=== PATIENT | female | born 1940 | race Asian ===

== ENCOUNTER 2017-03-06 13:53 | Inpatient (IN) | payer MEDICARE, BC ==
[~2017-03-06] VITALS: Ht 162.6 cm; Wt 63.5 kg
[2017-03-06] MEDS ORDERED: Surgicel 4in x 8in TOPIC ONE (13:57)
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
[2017-03-06 15:00] LABS: EOSINOPHILS % (AUTO) 1.3 % (0.0-3.0); HEMATOCRIT 45.4 % (37.0-47.0); HEMOGLOBIN 15.6 G/DL (12.0-16.0); LYMPHOCYTES % (AUTO) 18.9 % (20.0-45.0); MEAN CORPUSCULAR VOLUME 92 FL (80-99); MONOCYTES % (AUTO) 7.1 % (1.0-10.0); NEUTROPHILS % (AUTO) 71.6 % (45.0-75.0); PLATELET COUNT 159 K/UL (150-450); RED BLOOD COUNT 4.92 M/UL (4.20-5.40); RED CELL DISTRIBUTION WIDTH 11.4 % (11.6-14.8); WHITE BLOOD COUNT 5.6 K/UL (4.8-10.8)
[2017-03-06 15:08] VITALS: BP 134/80
[2017-03-06 15:08] LABS: ANION GAP 11 mmol/L (5-15); BLOOD UREA NITROGEN 15 mg/dL (7-18); CALCIUM 9.4 MG/DL (8.5-10.1); CARBON DIOXIDE 27 MMOL/L (21-32); CHLORIDE 104 MMOL/L (98-107); CREATININE 0.9 MG/DL (0.55-1.30); POTASSIUM 3.1 MMOL/L (3.5-5.1); SODIUM 142 MMOL/L (136-145)
--- NOTE | 2017-03-06 15:25 | Diagnostic Imaging Report ---
Indication: Headache Technique: Contiguous 5 mm thick transaxial imaging of the head obtained in a Siemens Sensation [address] scanner. Soft tissue and bone windows generated. Automatic Exposure Control was utilized. Total Dose length Product (DLP): [address] Dose Index Volume (CTDIvol): 70.38, 0.15 mGy Comparison: none Findings: There is mild prominence of the ventricles, basal cisterns, and cerebral sulci consistent with atrophy. Mild, nonspecific, white matter hypoattenuation is noted throughout the brain consistent with chronic small vessel disease. There is no midline shift, edema, acute hemorrhage, mass effect, or abnormal extra-axial fluid collections. Bones and extra osseous soft tissues are unremarkable. Impression: No acute intracranial bleed, mass effect or edema. Mild atrophy of the brain. Nonspecific white matter hypoattenuation probably due to chronic small vessel disease. The CT scanner at [facility] is accredited by the [employer] and the scans are performed using dose optimization techniques as appropriate to a performed exam including Automatic Exposure control.
[2017-03-06] MEDS ORDERED: Ketorolac 30mg Inj IV ONE (16:15)
--- NOTE | 2017-03-06 17:03 | Diagnostic Imaging Report ---
Indication: Chest and abdominal pain Technique: Continuous helical transaxial imaging of the chest, abdomen and pelvis was obtained from the lung bases to the pubic symphysis during intravenous contrast administration. Multiple phases of enhancement obtained. Coronal 2-D reformats were also obtained. Study obtained in a Siemens sensation [address] Automatic Exposure Control was utilized. Total Dose length Product (DLP): [address] Dose Index Volume (CTDIvol): 0.15, 8, 49, 16, 15 mGy Comparison: None Findings: There is posterior basilar atelectasis demonstrated. The heart is enlarged. Aorta is ectatic and mildly calcified. There are multiple hypodensities within the liver. These appear to be cysts. Cholecystectomy noted. Pancreas is unremarkable. There are bilateral renal cysts. Abnormal area of subcutaneous reticulation noted along the left anterior abdominal wall. There is a small milligram hernia containing fat. The appendix is normal. There is no free fluid or free air. The bladder is unremarkable. There is no hydronephrosis. Aorta is mildly calcified. Diverticula noted in the colon. Impression: Abnormal, focal, left anterior abdominal wall subcutaneous reticulation. Cellulitis versus contusion injury. Please correlate clinically. No abscess identified. Umbilical hernia containing fat. Post hysterectomy. Atherosclerotic disease Liver and bilateral renal cysts. Status post cholecystectomy. Posterior basilar atelectasis. Diverticulosis of the colon. The CT scanner at [facility] is accredited by the [employer] and the scans are performed using dose optimization techniques as appropriate to a performed exam including Automatic Exposure control.
[2017-03-06 17:48] VITALS: BP 128/90
[2017-03-06] MEDS ORDERED: LOSARTAN-HCTZ1 EAC2 ORAL (18:06)
[2017-03-06] MEDS ORDERED: LEVOTHYROXINE125 MCG ORAL (18:06)
[2017-03-06] MEDS ORDERED: EVISTA60 MG ORAL (18:06)
[2017-03-06] MEDS ORDERED: SIMVASTATIN20 MG ORAL (18:06)
[2017-03-06] MEDS ORDERED: dilTIAZem HCl 25mg/5ml Inj IV PRN (18:30)
[2017-03-06] MEDS ORDERED: Enalaprilat 2.5mg/2ml Inj IV PRN (18:30)
[2017-03-06] MEDS ORDERED: Nitroglycerin Subl 0.4mg tab SL PRN (18:30)
[2017-03-06] MEDS ORDERED: Ketorolac 30mg Inj IV PRN (18:30)
[2017-03-06] MEDS ORDERED: Albuterol/Ipratropium 3ml neb HHN PRN (18:30)
[2017-03-06] MEDS ORDERED: Miralax 17gm pkt ORAL PRN (18:30)
[2017-03-06 19:48] VITALS: BP 115/75
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
[2017-03-06 20:50] VITALS: BP 101/66
[2017-03-06] MEDS ORDERED: Ketorolac 30mg Inj IM PRN (23:00)
[2017-03-07] MEDS: Heparin 5000 units/ml inj SUBQ SCH ×2 (00:28→09:05)
[2017-03-07] MEDS ORDERED: Ketorolac 30mg Inj IV PRN (00:30)
[2017-03-07] MEDS ORDERED: Levothyroxine 125mcg tab ORAL SCH (06:30)
[2017-03-07 08:34] LABS: BASOPHILS % (AUTO) 1.4 % (0.0-2.0); EOSINOPHILS % (AUTO) 2.9 % (0.0-3.0); HEMATOCRIT 42.6 % (37.0-47.0); HEMOGLOBIN 13.4 G/DL (12.0-16.0); LYMPHOCYTES % (AUTO) 30.3 % (20.0-45.0); MEAN CORPUSCULAR VOLUME 95 FL (80-99); MONOCYTES % (AUTO) 10.2 % (1.0-10.0); NEUTROPHILS % (AUTO) 55.2 % (45.0-75.0); PLATELET COUNT 131 K/UL (150-450); RED BLOOD COUNT 4.46 M/UL (4.20-5.40); RED CELL DISTRIBUTION WIDTH 11.2 % (11.6-14.8); WHITE BLOOD COUNT 3.9 K/UL (4.8-10.8)
[2017-03-07 08:57] LABS: CHOLESTEROL 120 MG/DL (< 200); HDL CHOLESTEROL 52 MG/DL (40-60); TRIGLYCERIDES 87 MG/DL (0-200)
[2017-03-07] MEDS ORDERED: Aspirin Baby 81mg ORAL SCH (09:00)
[2017-03-07] MEDS ORDERED: Hyzaar 12.5mg/50mg tab ORAL SCH (09:00)
[2017-03-07] MEDS ORDERED: LIDODERM700 M1 TDERMAL (13:34)
[2017-03-07] MEDS ORDERED: IBUPROFEN600 MG ORAL (13:34)
--- NOTE | 2017-03-07 14:06 | Diagnostic Imaging Report ---
Indication: Neck Pain Findings: 3 views of the cervical spine were obtained. C6-7 disc is narrowed. Osteophytes noted at C5-6 and C6-7. Alignment is normal. There is no fracture identified. The oblique views are nondiagnostic. Surgical clips or sutures noted posteriorly. This may be from previous acupuncture. Impression: Limited exam as described above.
--- NOTE | 2017-03-07 14:11 | Diagnostic Imaging Report ---
Indication: Pain Findings: 3 views of the right shoulder were obtained. Bones are osteopenic. There is narrowing of the right acromioclavicular joint. No fracture or malalignment seen. Broken acupuncture needles are noted. Impression: No acute injury
--- NOTE | 2017-03-07 14:13 | Diagnostic Imaging Report ---
Indication: Pain Findings: 3 views of the left shoulder were obtained. Alignment of the left shoulder is normal. No acute fracture is identified. Soft tissues are unremarkable. Bones are osteopenic. Impression: No acute injury
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
[2017-03-07 18:23] VITALS: BP 109/76
--- NOTE | 2017-03-08 12:38 | Cardiology Report ---
APPROVED REPORT EXAM: Two-dimensional and M-mode echocardiogram with Doppler and color Doppler. INDICATION LEFT VENTRICULAR FUNCTION M-Mode DIMENSIONS IVSd1.5 (0.7-1.1cm)Left Atrium (MM)2.2 (1.6-4.0cm) LVDd4.2 (3.5-5.6cm)Aortic Root3.3 (2.0-3.7cm) PWd1.3 (0.7-1.1cm)Aortic Cusp Exc.1.8 (1.5-2.0cm) IVSs2.0 cm LVDs3.0 (2.5-4.0cm) PWs1.4 cm Normal left ventricular chamber size, systolic function and wall motion. Left ventricular ejection fraction estimated to be 60-65 %. Mild left ventricular hypertrophy. No evidence of pericardial effusion. All other cardiac chamber sizes are within normal limits. Focal aortic valve sclerosis with adequate cusp excursion. Thickened mitral valve leaflets with normal excursion. Normal pulmonic valve structure. Normal tricuspid valve structure. IVC measured at 2.1 cm with slight collapse suggestive of mildly increased RA pressure. A color flow and spectral Doppler study was performed and revealed: Trace aortic regurgitation. Trace mitral regurgitation. Mitral diastolic velocities suggest reduced left ventricular relaxation c/w mild LV diastolic dysfunction (Grade I ). Mild tricuspid regurgitation. Tricuspid systolic velocities suggests peak right ventricular systolic pressure of 38 mmHg, consistent with mild pulmonary hypertension. Mild pulmonic regurgitation present.
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
--- NOTE | 2017-03-17 16:26 | Cardiology Report ---
APPROVED REPORT EKG Measurement Heart [id number] Normal sinus rhythm Nonspecific T wave abnormality Prolonged QT Abnormal ECG
--- NOTE | 2017-03-17 16:26 | Cardiology Report ---
APPROVED REPORT EKG Measurement Heart [id number] Normal sinus rhythm Nonspecific T wave abnormality Prolonged QT Abnormal ECG
--- NOTE | 2017-03-17 16:26 | Cardiology Report ---
APPROVED REPORT EKG Measurement Heart [id number] ID [id number] Normal sinus rhythm Nonspecific T wave abnormality Prolonged QT Abnormal ECG
== END 2017-03-07 18:38 | disposition home or self-care (01) | DRG 184 ==
LOC: EDBD 13:53 → EMR 17:07 → 2E 17:13 → EDBEDREQ 19:00 → 2E 21:28
DX: S22.49XA Multiple fractures of ribs, unspecified side, initial encounter for closed fracture (principal); S26.11XA Contusion of heart without hemopericardium, initial encounter; I10 Essential (primary) hypertension; V89.2XXA Person injured in unspecified motor-vehicle accident, traffic, initial encounter; Y92.410 Unspecified street and highway as the place of occurrence of the external cause; E03.9 Hypothyroidism, unspecified; E78.5 Hyperlipidemia, unspecified; R79.89 Other specified abnormal findings of blood chemistry
CPT/HCPCS: 36415; 70450; 71260; 72052; 74177; 80048; 80061; 83735; 84443; 84484; 85025; 85610; 85730; 86140; 93005; 93306; 94664; 99285; J8499